=== PATIENT | male | born 1950 | race Two or more races ===

== ENCOUNTER 2019-10-01 11:22 | Emergency (ER) | payer SELFPAY ==
[~2019-10-01] VITALS: Ht 170.2 cm; Wt 86.6 kg
--- NOTE | 2019-10-01 11:31 | NUR ---
BIB RA FROM HOME,SYNCOPAL EPISODE AND LOW BP, BLOOD SUGAR 207 SEATER GRINDER; pt to bed 8, alert, awake, -sob, nad noted, vss, pending md lizarraga
[2019-10-01] MEDS ORDERED: IV NS 0.9% 500 ML BAG IV ONE (12:00)
[2019-10-01 12:23] LABS: BASOPHILS % (AUTO) 0.5 % (0.0-2.0); EOSINOPHILS % (AUTO) 1.9 % (0.0-6.0); HEMATOCRIT 44 % (39-51); LYMPHOCYTES # (AUTO) 2.2 /CMM (0.8-4.8); LYMPHOCYTES % (AUTO) 31.5 % (20.0-44.0); MEAN CORPUSCULAR HGB CONC 34 g/dl (31.0-36.0); MEAN CORPUSCULAR VOLUME 88 fL (80-96); MONOCYTES # (AUTO) 0.5 /CMM (0.1-1.30); NEUTROPHILS # (AUTO) 4.1 /CMM (1.8-8.9); NEUTROPHILS % (AUTO) 59.1 % (43.0-81.0); PLATELET COUNT (AUTO) 201 /CMM (150-450); RED BLOOD CELL COUNT(AUTO) 4.95 MIL/uL (4.5-6.0); WHITE BLOOD COUNT (AUTO) 6.9 K/uL (4.3-11.0)
[2019-10-01 12:33] LABS: CALCIUM, SERUM 8.6 mg/dL (8.5-10.1); CARBON DIOXIDE 29 mmol/L (21-32); CHLORIDE 101 mmol/L (98-107); CREATININE 1.6 mg/dL (0.6-1.3); GLUCOSE 199 mg/dL (74-106); POTASSIUM 3.6 mmol/L (3.5-5.1); SODIUM SERUM 137 mmol/L (136-145); UREA NITROGEN, BLOOD 17 mg/dL (7-18)
[2019-10-01 12:39] LABS: ALANINE AMINOTRANSFERASE 33 U/L (12-78); ALBUMIN 3.5 g/dL (3.4-5.0); ALKALINE PHOSPHATASE 80 U/L (46-116); ASPARTATE AMINOTRANSFERASE 27 U/L (15-37); BILIRUBIN,DIRECT 0.2 mg/dL (0.0-0.2); BILIRUBIN,TOTAL 0.9 mg/dL (0.2-1.0); TOTAL PROTEIN, SERUM 7.3 g/dL (6.4-8.2)
[2019-10-01 13:02] VITALS: BP 142/84
--- NOTE | 2019-10-01 14:31 | NUR ---
called derrell garcia, will pick pack worker patient in 30 mins
--- NOTE | 2019-10-01 15:19 | NUR ---
Patient discharged to home in stable condition. Written and verbal after care instructions given. Patient verbalizes understanding of instruction. IV removed. Catheter intact and site benign. Pressure and 4x4 applied to site. No bleeding noted.
[2019-10-05] MEDS ORDERED: METR500T PO (11:41)
[2019-10-05] MEDS ORDERED: LEVO500T90 PO (11:41)
== END 2019-10-01 15:21 | disposition home or self-care (01) ==
LOC: ER 11:22 → EDSEX 11:22 → ER 15:21
DX: R14.0 Abdominal distension (gaseous) (principal); R55 Syncope and collapse; I10 Essential (primary) hypertension; E11.9 Type 2 diabetes mellitus without complications
CPT/HCPCS: 36415; 70450; 71045; 80048; 80076; 83605; 84484; 85025; 85730; 93005; 96360; 99285; J7040

== ENCOUNTER 2019-10-03 11:02 | Inpatient (IN) | payer MEDICAID ==
[~2019-10-03] VITALS: Ht 167.6 cm; Wt 86.2 kg
[2019-10-03] MEDS ORDERED: IV NS 0.9% 1,000 ML BAG IV ONE (11:30)
--- NOTE | 2019-10-03 11:34 | NUR ---
diffused abdominal pain with bright red blood in stool. PT HAS COLOSTOMY BAG IN PLACE. LEE ANN-SPEAKING ONLY. DENIES SOB, N/V, DIZZINESS, WEAKNESS. NO ACUTE DISTRESS NOTED. RR EVEN AND UNALBORED ON RA. ON MONITOR AND READY FOR EVAL.
--- NOTE | 2019-10-03 11:44 | NUR ---
UNABLE TO START IV. PT WILL GO TO RADIOLOGY, THEN TRY AGAIN.
--- NOTE | 2019-10-03 11:46 | NUR ---
PT TAKEN TO RADIOLOGY VIA [facility]
[2019-10-03 11:51] LABS: BASOPHILS # (AUTO) 0.1 /CMM (0.0-0.2); BASOPHILS % (AUTO) 0.8 % (0.0-2.0); EOSINOPHILS % (AUTO) 2.4 % (0.0-6.0); HEMATOCRIT 43 % (39-51); HEMOGLOBIN 14.9 g/dL (13.5-17.5); LYMPHOCYTES # (AUTO) 2.4 /CMM (0.8-4.8); LYMPHOCYTES % (AUTO) 28.6 % (20.0-44.0); MEAN CORPUSCULAR HGB CONC 35 g/dl (31.0-36.0); MEAN CORPUSCULAR VOLUME 88 fL (80-96); MONOCYTES # (AUTO) 0.7 /CMM (0.1-1.30); MONOCYTES % (AUTO) 8.4 % (2.0-12.0); NEUTROPHILS % (AUTO) 59.8 % (43.0-81.0); PLATELET COUNT (AUTO) 161 /CMM (150-450); RED BLOOD CELL COUNT(AUTO) 4.87 MIL/uL (4.5-6.0); WHITE BLOOD COUNT (AUTO) 8.3 K/uL (4.3-11.0)
--- NOTE | 2019-10-03 11:52 | NUR ---
DAUGHTER, KETAN, PHONE NUMBER [phone]
[2019-10-03 12:07] LABS: ALANINE AMINOTRANSFERASE 30 U/L (12-78); ALBUMIN 3.4 g/dL (3.4-5.0); ALKALINE PHOSPHATASE 84 U/L (46-116); ASPARTATE AMINOTRANSFERASE 35 U/L (15-37); BILIRUBIN,DIRECT 0.1 mg/dL (0.0-0.2); BILIRUBIN,TOTAL 0.9 mg/dL (0.2-1.0); CALCIUM, SERUM 8.7 mg/dL (8.5-10.1); CARBON DIOXIDE 31 mmol/L (21-32); CHLORIDE 102 mmol/L (98-107); CREATININE 1.5 mg/dL (0.6-1.3); GLUCOSE 177 mg/dL (74-106); LIPASE 190 U/L (73-393); POTASSIUM 4.4 mmol/L (3.5-5.1); SODIUM SERUM 137 mmol/L (136-145); TOTAL PROTEIN, SERUM 7.4 g/dL (6.4-8.2); UREA NITROGEN, BLOOD 15 mg/dL (7-18)
--- NOTE | 2019-10-03 12:47 | NUR ---
GAVE PT'S SON UPDATE. SON WILL BRING MED LIST IN 30 MIN
[2019-10-03] MEDS ORDERED: PIPERACILLIN /TAZOBACTAM 3.375 G in IV D5W 50 ML IV ONE (13:00)
--- NOTE | 2019-10-03 13:05 | NUR ---
PAGED [facility].
--- NOTE | 2019-10-03 13:16 | NUR ---
URINE SENT TO STAT LAB
[2019-10-03] MEDS ORDERED: PIPERACILLIN /TAZOBACTAM 3.375 G VIAL IV ONE (13:18)
[2019-10-03] MEDS ORDERED: PYRI100T10 PO (13:19)
[2019-10-03] MEDS ORDERED: GABA-532 PO (13:19)
[2019-10-03] MEDS ORDERED: LOSA50TA39 PO (13:19)
[2019-10-03] MEDS ORDERED: SIMV-49 PO (13:19)
[2019-10-03] MEDS ORDERED: THIA100T70 PO (13:19)
[2019-10-03] MEDS ORDERED: CYAN-51 PO (13:19)
[2019-10-03] MEDS ORDERED: ASPI-1169 PO (13:19)
[2019-10-03] MEDS ORDERED: TRAM50TA2 PO (13:19)
[2019-10-03] MEDS ORDERED: GLIP5TAB13 PO (13:19)
--- NOTE | 2019-10-03 13:29 | NUR ---
CALLED [facility] FOR M/S BED.
--- NOTE | 2019-10-03 13:35 | NUR ---
FALGUNI KEENAN AT BEDSIDE
[2019-10-03 13:44] LABS: APPEARANCE,URINE Clear (CLEAR); BILIRUBIN,URINE Negative (NEGATIVE); BLOOD, URINE Negative Ery/uL (NEGATIVE); COLOR,URINE Yellow (YELLOW); KETONES,URINE Negative (NEGATIVE); LEUKOCYTE ESTERASE ,URINE Negative (NEGATIVE); NITRITE, URINE Negative (NEGATIVE); PROTEIN,URINE Negative (NEGATIVE); UGLUCOSE Negative (NEGATIVE); UROBILINOGEN,URINE 0.2 EU/dL (0.2)
[2019-10-03] MEDS ORDERED: IV NS 0.9% 1,000 ML IV PRN (14:03)
--- NOTE | 2019-10-03 14:13 | NUR ---
REPORT GIVEN TO RN OCTOBER FOR 314-1 MS, FALGUNI KEENAN ADMITTING
[2019-10-03] MEDS ORDERED: ONDANSETRON HCL/PF 4 MG/2 ML VIAL IVP PRN (14:30)
[2019-10-03] MEDS ORDERED: HYDROCODONE/APAP 5/325MG 1 EACH TABLET PO PRN (14:30)
[2019-10-03] MEDS ORDERED: Z GUARD REMEDY 2 OZ OINT TP PRN (14:30)
[2019-10-03] MEDS ORDERED: MORPHINE SULFATE INJ 2 MG/ML DISP.SYRIN IV PRN (14:30)
[2019-10-03] MEDS ORDERED: MAGNESIUM HYDROXIDE 30 ML UDC PO PRN (14:30)
[2019-10-03] MEDS ORDERED: MAG HYDROX/AL HYDROX/SIMETH 30 ML UDC PO PRN (14:30)
[2019-10-03] MEDS ORDERED: ACETAMINOPHEN 325 MG TABLET PO PRN (14:30)
--- NOTE | 2019-10-03 14:35 | NUR ---
[facility]
--- NOTE | 2019-10-03 15:30 | NUR ---
MS CHEMICAL INSTRUMENTATION OFFICER NOTES RECEIVED PT FROM ER DEPT AT 1440 VIA [facility]. PT A/OX3-4, BOLIVIAN SPEAKING ONLY. AMBULATORY. PT TOLERATING RA, WITH NO ACUTE RESPIRATORY DISTRESS NOTED. PT DENIES ANY PAIN OR DISCOMFORT. ADMISSION HISTORY PROVIDED BY DAUGHTER MARVIN VIA PHONE. PT STARTED NS AT 75ML/HR TO R HAND G20, INTACT AND OPERATIONAL. SKIN ASSESSMENT DONE, COLOSTOMY PRESENT. PT ABLE TO GO TO TOILET TO URINATE. DR. DURBIN CAME AND ASSESSED PT, PT UNABLE TO CONVERSE AND GAVE DAUGHTER'S CONTACT NUMBER TO MD TO TALK. PT KEPT COMFORTABLE IN BED. PT'S BED IN LOWEST, LOCKED POSITION WITH SR X3. CALL LIGHT KEPT WITHIN REACH. WILL CONTINUE TO MONITOR.
[2019-10-03] MEDS: PIPERACILLIN /TAZOBACTAM 3.375 G in IV D5W 100 ML IV SCH (17:03)
[2019-10-03] MEDS ORDERED: PIPERACILLIN /TAZOBACTAM 3.375 G in IV D5W 50 ML IV SCH (18:00)
--- NOTE | 2019-10-03 18:43 | NUR ---
MS RN CLOSING NOTES PT REMAINS IN BED, A/OX3-4, HEBREW SPEAKING ONLY. AMBULATORY. PT TOLERATING RA, WITH NO ACUTE RESPIRATORY DISTRESS NOTED. PT DENIES ANY PAIN OR DISCOMFORT. IVF NS AT 75ML/HR TO R HAND G20, INTACT AND OPERATIONAL. ALL NEEDS AND CARE ATTENDED. PT KEPT COMFORTABLE IN BED. PT'S BED IN LOWEST, LOCKED POSITION WITH SR X3. CALL LIGHT KEPT WITHIN REACH. WILL ENDORSE TO INCOMING NIGHT NURSE FOR JASPER.
--- NOTE | 2019-10-03 19:50 | NUR ---
MS RN NOTE: PATIENT RESTING IN BED, NO ACUTE DISTRESS NOTED. BREATHING EVEN AND UNLABORED, NO SOB NOTED. IV TO RIGHT HAND IN PLACE. BED LOCKED AND IN LOWEST POSITION, CALL LIGHT IN REACH. WILL CONTINUE TO MONITOR.
[2019-10-03 20:00] VITALS: BP 162/94
[2019-10-03] MEDS: GABAPENTIN 100 MG CAPSULE PO SCH (21:50)
[2019-10-03] MEDS ORDERED: SIMVASTATIN 40 MG TABLET PO SCH (22:00)
[2019-10-03] MEDS ORDERED: SIMVASTATIN 20 MG TABLET ONE (22:28)
[2019-10-03] MEDS: SIMVASTATIN 20 MG TABLET PO SCH (23:06)
[2019-10-04] MEDS: PIPERACILLIN /TAZOBACTAM 3.375 G in IV D5W 100 ML IV SCH ×3 (02:40→18:10)
--- NOTE | 2019-10-04 03:30 | NUR ---
MS RN NOTE: PATIENT SLEEPING IN BED, NO ACUTE DISTRESS NOTED. BREATHING EVEN AND UNLABORED, NO SOB NOTED. IV TO RIGHT HAND IN PLACE, INFUSING NS AT 75ML/HR. BED LOCKED AND IN LOWEST POSITION, CALL LIGHT IN REACH. WILL CONTINUE TO MONITOR.
--- NOTE | 2019-10-04 06:20 | NUR ---
MS RN NOTE: PATIENT RESTING IN BED, NO ACUTE DISTRESS NOTED. BREATHING EVEN AND UNLABORED, NO SOB NOTED. IV TO RIGHT HAND IN PLACE, INFUSING NS AT 75ML/HR. COLOSTOMY IN PLACE. BED LOCKED AND IN LOWEST POSITION, CALL LIGHT IN REACH. WILL ENDORSE TO DAY NURSE TO CONTINUE WITH PLAN OF CARE.
--- NOTE | 2019-10-04 07:57 | NUR ---
RN OPENING NOTE: PATIENT RESTING IN BED. MAORI SPEAKING. NO SIGNS OF DISTRESS NOTED. BREATHING EVEN AND UNLABORED WITH EQUAL RISE AND FALL OF CHEST. NEEDS ATTENDED TO. PLAN FOR LABS THIS AM. R HAND 20G PATENT AND INTACT WITH NS AT 75 ML/HR RUNNING ORDERED. SAFETY PRECAUTIONS IN PLACE. BED IN LOW POSITION, LOCKED WITH 2 SIDE RAILS UP FOR SAFETY. CALL LIGHT WITHIN REACH. ALL NEEDS ATTENDED TO. WILL CONTINUE TO MONITOR.
[2019-10-04 08:00] VITALS: BP 145/73
[2019-10-04 09:02] LABS: BASOPHILS % (AUTO) 0.7 % (0.0-2.0); EOSINOPHILS % (AUTO) 3.3 % (0.0-6.0); HEMATOCRIT 41 % (39-51); HEMOGLOBIN 14.5 g/dL (13.5-17.5); LYMPHOCYTES # (AUTO) 2.2 /CMM (0.8-4.8); LYMPHOCYTES % (AUTO) 33.8 % (20.0-44.0); MEAN CORPUSCULAR HGB CONC 35 g/dl (31.0-36.0); MEAN CORPUSCULAR VOLUME 87 fL (80-96); MONOCYTES # (AUTO) 0.6 /CMM (0.1-1.30); MONOCYTES % (AUTO) 8.8 % (2.0-12.0); NEUTROPHILS # (AUTO) 3.5 /CMM (1.8-8.9); NEUTROPHILS % (AUTO) 53.4 % (43.0-81.0); PLATELET COUNT (AUTO) 190 /CMM (150-450); RED BLOOD CELL COUNT(AUTO) 4.75 MIL/uL (4.5-6.0); WHITE BLOOD COUNT (AUTO) 6.5 K/uL (4.3-11.0)
[2019-10-04] MEDS: LOSARTAN POTASSIUM 50 MG TABLET PO SCH (09:13)
[2019-10-04] MEDS: CYANOCOBALAMIN 500 MCG TABLET PO SCH (09:14)
[2019-10-04] MEDS: PYRIDOXINE HCL 50 MG TABLET PO SCH (09:14)
[2019-10-04] MEDS: THIAMINE HCL 100 MG TABLET PO SCH (09:14)
[2019-10-04 09:19] LABS: CALCIUM, SERUM 8.9 mg/dL (8.5-10.1); CREATININE 1.3 mg/dL (0.6-1.3); MAGNESIUM 1.8 mg/dL (1.8-2.4); PHOSPHORUS 3.3 mg/dL (2.5-4.9); POTASSIUM 3.5 mmol/L (3.5-5.1)
[2019-10-04 09:23] LABS: THYROID STIMULATING HORMONE 2.563 uIU/mL (0.358-3.74)
[2019-10-04 09:47] VITALS: BP 145/73
[2019-10-04 16:00] VITALS: BP 142/83
--- NOTE | 2019-10-04 18:46 | NUR ---
RN CLOSING NOTE: PATIENT RESTING IN BED. LEE ANN SPEAKING. NO SIGNS OF DISTRESS NOTED. BREATHING EVEN AND UNLABORED WITH EQUAL RISE AND FALL OF CHEST. NEEDS ATTENDED TO. R HAND 20G PATENT AND INTACT WITH NS AT 75 ML/HR RUNNING ORDERED. SAFETY PRECAUTIONS IN PLACE. BED IN LOW POSITION, LOCKED WITH 2 SIDE RAILS UP FOR SAFETY. CALL LIGHT WITHIN REACH. ALL NEEDS ATTENDED TO. WILL ENDORSE TO BANK MANAGER RN FOR JASPER.
[2019-10-04 20:00] VITALS: BP 148/86
[2019-10-04] MEDS: GABAPENTIN 100 MG CAPSULE PO SCH (21:44)
[2019-10-04] MEDS: SIMVASTATIN 20 MG TABLET PO SCH (21:44)
[2019-10-05] MEDS: PIPERACILLIN /TAZOBACTAM 3.375 G in IV D5W 100 ML IV SCH ×2 (01:00→09:35)
--- NOTE | 2019-10-05 06:23 | NUR ---
MS RN NOTES AWAKE & RESPONSIVE. NOT IN ANY DISTRESS. NO SOB NOTED. DENIES ANY PAIN OR DISCOMFORT AT THIS TIME. WITH IVF INFUSING WELL. AM CARE DONE. MONITORED ACCORDINGLY. CALL LIGHT WITHIN REACH. BED IN LOWEST POSITION. SR UP X 2 FOR SAFETY. WILL ENDORSE TO NEXT SHIFT.
--- NOTE | 2019-10-05 07:25 | NUR ---
MS RN NOTES RECEIVED PATIENT IN BED, ALERT AND AWAKE WATCHING TV. DENIES ANY C/O PAIN NOR DISCOMFORT AT THIS TIME. NO SOB. RIGHT HAND # 20 INTACT AND PATENT INFUSING NS @ 75ML/HR JOSSIE WELL. BED IN LOWEST POSITION, LOCKED. BED ALARM ON. CALL LIGHT WITHIN REACH.
[2019-10-05 07:46] LABS: BASOPHILS % (AUTO) 0.3 % (0.0-2.0); HEMATOCRIT 43 % (39-51); LYMPHOCYTES # (AUTO) 1.8 /CMM (0.8-4.8); LYMPHOCYTES % (AUTO) 23.5 % (20.0-44.0); MEAN CORPUSCULAR HGB CONC 35 g/dl (31.0-36.0); MEAN CORPUSCULAR VOLUME 87 fL (80-96); MONOCYTES # (AUTO) 0.6 /CMM (0.1-1.30); MONOCYTES % (AUTO) 8.1 % (2.0-12.0); NEUTROPHILS % (AUTO) 65.1 % (43.0-81.0); PLATELET COUNT (AUTO) 191 /CMM (150-450); RED BLOOD CELL COUNT(AUTO) 4.89 MIL/uL (4.5-6.0); WHITE BLOOD COUNT (AUTO) 7.7 K/uL (4.3-11.0)
[2019-10-05 07:56] LABS: CALCIUM, SERUM 9.2 mg/dL (8.5-10.1); CARBON DIOXIDE 32 mmol/L (21-32); CHLORIDE 101 mmol/L (98-107); CREATININE 1.4 mg/dL (0.6-1.3); GLUCOSE 138 mg/dL (74-106); POTASSIUM 3.6 mmol/L (3.5-5.1); SODIUM SERUM 139 mmol/L (136-145); UREA NITROGEN, BLOOD 8 mg/dL (7-18)
[2019-10-05 09:43] VITALS: BP 151/81
[2019-10-05] MEDS: THIAMINE HCL 100 MG TABLET PO SCH (09:43)
[2019-10-05] MEDS: LOSARTAN POTASSIUM 50 MG TABLET PO SCH (09:43)
[2019-10-05] MEDS: PYRIDOXINE HCL 50 MG TABLET PO SCH (09:43)
[2019-10-05] MEDS: CYANOCOBALAMIN 500 MCG TABLET PO SCH (09:43)
[2019-10-05] MEDS ORDERED: LEVO500T90 PO (11:41)
[2019-10-05] MEDS ORDERED: METR500T PO (11:41)
--- NOTE | 2019-10-05 15:15 | NUR ---
MS RN NOTES ALERT AND ORIENTED X3. NO SOB. DENIES ANY C/O PAIN NOR DISCOMFORT AT THIS TIME. PATIENT FOR DISCHARGE. DISCHARGE INSTRUCTIONS, EDUCATIONS AND PACKET GIVEN TO PATIENT AND DISCUSSED WITH DTR OVER THE PHONE. IV ACCESS REMOVED WITH CATHETER TIP INTACT WITH GAUZE DRESSING IN PLACE. AMBULATORY WITH STEADY GAIT. ALL BELONGINGS ACCOUNTED FOR. PATIENT PICKED UP BY DTR AND LEFT IN STABLE CONDITION.
== END 2019-10-05 15:15 | disposition home or self-care (01) | DRG 246 ==
LOC: ER 11:08 → MED 13:55
PROVIDERS: ADMIT Nurse Practitioner Acute Care; ATTEND Nurse Practitioner Acute Care
DX: K55.9 Vascular disorder of intestine, unspecified (principal); N17.0 Acute kidney failure with tubular necrosis; K57.92 Diverticulitis of intestine, part unspecified, without perforation or abscess without bleeding; N28.1 Cyst of kidney, acquired; Z90.49 Acquired absence of other specified parts of digestive tract; Z90.5 Acquired absence of kidney; Z98.890 Other specified postprocedural states; Z79.84 Long term (current) use of oral hypoglycemic drugs; Z79.82 Long term (current) use of aspirin; Z79.899 Other long term (current) drug therapy; Z85.038 Personal history of other malignant neoplasm of large intestine; E66.9 Obesity, unspecified; E78.5 Hyperlipidemia, unspecified; K76.0 Fatty (change of) liver, not elsewhere classified; I12.9 Hypertensive chronic kidney disease with stage 1 through stage 4 chronic kidney disease, or unspecified chronic kidney disease; N18.9 Chronic kidney disease, unspecified; K63.89 Other specified diseases of intestine; E11.22 Type 2 diabetes mellitus with diabetic chronic kidney disease
CPT/HCPCS: 36415; 80048-TC; 80061-TC; 80076-TC; 81000-TC; 83605-TC; 83690-TC; 83735-TC; 84100-TC; 84443-TC; 84484-TC; 85025-TC; 87040-TC; 87081-TC; G0378; J2543; J7030; J7060